=== PATIENT | female | born 1955 | race Two or more races ===

== ENCOUNTER 2024-07-30 16:21 | Outpatient (REF) | payer OTHER, SELFPAY ==
[2024-07-30 18:04] LABS: Erythrocyte Sedimentation Rate 33 MM/HR (0-20)
[2024-08-02 12:29] LABS: Anti Nuclear Antibody Screen POSITIVE (NEGATIVE)
== END 2024-07-30 16:22 | disposition home or self-care (01) ==
LOC: HO.LAB 16:21
PROVIDERS: PCP Internal Medicine; Visit Provider Psychiatry & Neurology Neurology
DX: I63.9 Cerebral infarction, unspecified (principal)
CPT/HCPCS: 36415; 85652; 86038; 86039